=== PATIENT | female | born 1965 | race Caucasian/White ===

== ENCOUNTER 2017-06-23 15:00 | Emergency (ER) | payer OTHER ==
[~2017-06-23] VITALS: Ht 154.9 cm; Wt 71.7 kg
[~2017-06-23 15:00] MED LIST: ACET325 PO; ALBU90OI INH; AMIT10 PO; AMIT50; AMLO5 PO; AMPDEX10 PO; AMPDEX5; BUPR150ER PO; BUSP10 PO; CEFAZOLIN IV; CLON1 PO; COLCRYS0.6 MG PO; CYCL10 PO; DIVA250EC PO; DIVA500EC; DIVA500EC PO; DOCU100 PO; Depo-Prove150 MG/11 IM; Flexeril 10 mg10 MG PO; GABA100 PO; GABA300 PO; HYDACE10B PO; HYDR1TAB94 PO; IBUP600 PO; INDO50 PO; LIDO5TP TOP; LOSA50 PO; NAPR500 PO; Nafcillin2 GM/100 M IV; Norco 5-325 Ta1 EACH PO; OLAN2.5 PO; OMEP20ER; ONDA4 IV; OXCA300 PO; PENVK500 PO; Percocet 10-321 EACH PO; Percocet 5-3251 EACH PO; Protonix40 MG PO; Proventil2.5 MG/3 M INH; QUET100 PO; SAPHRIS10 MG SL; Senna8.6 MG PO; TRAM50 PO; Ultram50 MG PO; WARF5 PO; ZOLP5 PO; [UNRECOGNIZED DRUG - OTHER]
[2017-06-23] MEDS ORDERED: Norco 5-325 Ta1 EACH PO (17:03)
[2017-06-23] MEDS ORDERED: Zofran Odt4 MG SL (17:03)
== END 2017-06-23 17:25 | disposition home or self-care (01) ==
LOC: ER 15:00
DX: S22.31XA Fracture of one rib, right side, initial encounter for closed fracture (principal); F31.9 Bipolar disorder, unspecified; F41.9 Anxiety disorder, unspecified; I10 Essential (primary) hypertension; Z88.2 Allergy status to sulfonamides; Z88.5 Allergy status to narcotic agent; Z79.899 Other long term (current) drug therapy; X58.XXXA Exposure to other specified factors, initial encounter
CPT/HCPCS: 71100; 96372; 99283; J1885

== ENCOUNTER 2017-08-30 22:19 | Emergency (ER) | payer OTHER ==
[~2017-08-30] VITALS: Ht 154.9 cm; Wt 70.3 kg
[~2017-08-30 22:19] MED LIST changes: +Zofran Odt4 MG SL
[2017-08-30] MEDS ORDERED: TRAM50 PO (22:31)
[2017-08-31] MEDS ORDERED: Cyclobenzaprine5 MG PO (01:51)
[2017-08-31] MEDS ORDERED: Norco 5-325 Ta1 EACH PO (01:51)
[2017-08-31] MEDS ORDERED: IBUP600 PO (01:51)
== END 2017-08-31 02:44 | disposition home or self-care (01) ==
LOC: ER 22:19
DX: G89.29 Other chronic pain (principal); M54.5 Low back pain; F31.9 Bipolar disorder, unspecified; F41.9 Anxiety disorder, unspecified; I10 Essential (primary) hypertension; Z88.2 Allergy status to sulfonamides; Z88.5 Allergy status to narcotic agent; Z79.899 Other long term (current) drug therapy
CPT/HCPCS: 72100; 96372; 99283; J1100; J1885

== ENCOUNTER → 2018-04-03 | Outpatient (CLI) | payer OTHER ==
[~2018-04-03] MED LIST changes: +Cyclobenzaprine5 MG PO
== END ==
LOC: LAB 16:56 → LAB SHORT 16:56
DX: L08.9 Local infection of the skin and subcutaneous tissue, unspecified (principal); D22.5 Melanocytic nevi of trunk; L02.414 Cutaneous abscess of left upper limb; L81.4 Other melanin hyperpigmentation; D18.01 Hemangioma of skin and subcutaneous tissue; Z71.89 Other specified counseling
CPT/HCPCS: 87070; 87205

== ENCOUNTER → 2018-08-21 | Outpatient (CLI) | payer OTHER | LOC: LAB 07:00 → LAB SHORT 08-22 07:16 | DX: D48.5 Neoplasm of uncertain behavior of skin (principal) | CPT/HCPCS: 87015; 87071; 87075; 87102; 87116; 87205; 87206 ==